=== PATIENT | female | born 1960 | race Caucasian/White ===

== ENCOUNTER → 2016-05-03 | Outpatient (CLI) | payer OTHER ==
--- NOTE | 2016-05-03 08:33 | RAD ---
EXAM: Chest, 2 views. HISTORY: Congestion. COMPARISON: None. FINDINGS: Frontal and lateral views the chest are obtained. There is no infiltrate, effusion or pneumothorax. The heart is normal in size. IMPRESSION: No acute pulmonary finding.
== END | disposition home or self-care (01) ==
LOC: DXRADRC 07:46
PROVIDERS: ATTEND Physician Assistant Medical
DX: R09.89 Other specified symptoms and signs involving the circulatory and respiratory systems (principal); R05 Cough
CPT/HCPCS: 71020

== ENCOUNTER 2016-06-04 14:40 | Emergency (ER) | payer OTHER ==
[~2016-06-04] VITALS: Ht 157.5 cm; Wt 112.0 kg
[2016-06-04] MEDS: HYDROCODONE/APAP 7.5/325MG TABLET. PO ONE (15:25)
--- NOTE | 2016-06-04 15:36 | PHYS DOC ---
Past History Past Medical History: Diabetes, Hypertension Past Surgical History: Cholecystectomy, Colectomy, Alcohol Use: Rarely Drug Use: None Adult General Chief Complaint Chief Complaint: BACK INJURY HPI HPI Patient is a 55-year-old female who presents after an accident at work. 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 She backed it into a wall and although she was wearing a harness, she slid forward in her seat and slid between the bars on the front of the device that are meant for protection. She was able to extricate herself and was ambulatory briefly after the accident but then coworkers placed her on a cart to bring her to the front of the building. She presents by POV for evaluation. She complains of pain in the middle of her back, across her back on both sides just below her bra. It hurts to take a deep breath. She was not having any pain before the accident. She denies any injury to her head, arms or legs. Patient does not have chronic back problems. Review of Systems Review of Systems Constitutional: Denies fever or chills [] HENT: Denies facial injury Respiratory: She is slightly short of breath and hurts somewhat to take a deep breath Cardiovascular: Denies chest pain Musculoskeletal: As in history of present illness Integument: Denies rash or skin lesions [] Neurologic: Denies headache, focal weakness or sensory changes [] Endocrine: Patient has type 2 diabetes Current Medications Current Medications Current Medications Medications (Trade) Dose Ordered Sig/Dorothy Start Time Stop Time Status Last Admin Dose Admin Acetaminophen/ Hydrocodone Bitart (Lortab 7.5/325) 1 tab 1X ONCE 06/04/16 15:45 06/04/16 15:46 06/04/16 15:25 1 TAB Allergies Allergies Allergies Coded Allergies Type Severity Reaction Last Updated Verified No Known Drug Allergies 06/04/16 No Physical Exam Physical Exam Constitutional: Well developed, well nourished, appears uncomfortable, no dyspnea. HENT: Normocephalic, atraumatic, bilateral external ears normal, no injury to face or head, Eyes: conjunctiva normal, no discharge. [] Neck: Normal range of motion, no tenderness, supple, no stridor. [] Cardiovascular:Heart rate regular rhythm, no murmur [] Lungs & Thorax: Bilateral breath sounds clear to auscultation [] Skin: Warm, dry, no erythema, no abrasion or contusion noted Back: Normal to inspection. Midline thoracic tenderness, approximately T5, T6. No swelling or crepitance. Extremities: No tenderness, no cyanosis, no clubbing, ROM intact, no edema. [] Neurologic: Alert and oriented X 3, normal motor function, normal sensory function, no focal deficits noted. [] Current Patient Data Vital Signs Vital Signs Date Time Temp Pulse Resp B/P Pulse Ox O2 Delivery O2 Flow Rate FiO2 06/04/16 15:25 12 06/04/16 14:47 98.0 92 99 Room Air EKG EKG [] Radiology/Procedures Radiology/Procedures [] Course & Med Decision Making Course & Med Decision Making Pertinent Labs and Imaging studies reviewed. (See chart for details) 55-year-old female with mid thoracic pain after an accident as described in history of present illness. I discussed with her giving her something for pain and obtaining thoracic spine x-rays. She is agreeable to that plan. The patient' s manager it training is here and ED nursing staff discussed with him that we would like to medicate her for pain despite the fact that the patient has not yet given a urine for drug screen, manager it training is okay with that. The patient was given a [place] for pain and we will get thoracic spine x-rays. Plain films of the T-spine read by me. I believe there is some loss of height of approximately T6, unknown whether new or old. I ordered a CT scan of the cervical spine. CT of T spine - nothing acute per Rad. D/w pt - ice, NSIADS, F/U work comp clinic. [] Dragon Disclaimer Dragon Disclaimer This chart was dictated in whole or in part using Voice Recognition software in a busy, high-work load, and often noisy Emergency Department environment. It may contain unintended and wholly unrecognized errors or omissions. Departure Departure: Impression: Primary Impression: Contusion, back Disposition: 01 HOME, SELF-CARE Condition: STABLE Referrals: LUCITA EUBANKS MD (PCP) Patient Instructions: Contusion, [id number] Additional Instructions: Ice to area of pain, 15-20 minutes out of every 1-2 hours. Ibuprofen 800 mg every 8 hours, pain and anti-inflammatory If needed for more severe pain, hydrocodone as prescribed. Not while driving or working. Will be sedating. This is an opiate. It will be constipating. Scripts Hydrocodone Bit/Acetaminophen ([place] 5-325 Tablet)1 Each Tablet1-2 Tab PO Q4- 6HRS #20 TAB For more severe pain Back pain Okay to combine with ibuprofen This is a opiate Will be sedating and constipating Prov:DIO GREEN MD 06/04/16 Ibuprofen 800 Mg [id number] Mg PO Q8HRS #30 For pain and anti-inflammatory Okay to combine with hydrocodone Prov:DIO GREEN MD 06/04/16 DIO GREEN MD Jun 04, 2016 15:36
[2016-06-04 15:55] VITALS: BP 148/68
--- NOTE | 2016-06-04 17:32 | RAD ---
PROCEDURE CT of the thoracic spine without contrast HISTORY Hit by left tract today at work pain mid thoracic spine. TECHNIQUE One or more of the following individualized dose reduction techniques were utilized for this examination: 1. Automated exposure control; 2. Adjustment of the mA and/or kV according to patient size; 3. Use of iterative reconstruction technique. COMPARISON None FINDINGS Images were obtained from the lower thoracic spine through mid T12. Sagittal and coronal reconstructed images were performed. No thoracic spine fracture or subluxation is seen. There are degenerative changes with the anterior osteophyte formation at multiple levels greater in the mid to lower thoracic spine. There is Schmorl's node formation with associated sclerosis at T11. There is sclerosis with areas of cyst formation in the inferior aspect of T12.. This may be due to Schmorl's node formation or associated with the degenerative disc disease. The inferior aspect of this process is not included in the field of view. The paraspinous soft tissues are unremarkable. There is no narrowing of the spinal canal or foraminal stenosis. Visualized portions of the lungs are clear. No significant pleural effusions are seen. IMPRESSION No thoracic spine fracture or subluxation is seen. There are degenerative changes. T12 is not entirely included in the field of view. There is sclerosis and cyst formation in the inferior aspect of the T12 vertebral body which probably on a degenerative basis or due to Schmorl's node formation and degenerative change. Electronically signed by: Etta Olivas (Jun 04, 2016 17:32:03)
[2016-06-04] MEDS ORDERED: IBUP800T PO (17:44)
[2016-06-04] MEDS ORDERED: HYDR-971 PO (17:44)
--- NOTE | 2016-06-05 09:11 | RAD ---
Three-view thoracic spine series History: Injury at work. Back pain. Findings: Mild dextroscoliosis is seen. There is loss of the vertical height of a lower thoracic vertebral body which may be T8. There is loss of the vertical height of L1 vertebral body which may be related to scoliotic curvature but a compression fracture here is possible. No discitis or osteolytic process is seen. IMPRESSION: Possible mild compression fractures of T8 and L1. If clinically needed, MRI study of the thoracic spine may be helpful for further evaluation. The thoracic spine MRI study may be performed to include L1.
== END 2016-06-04 17:55 | disposition home or self-care (01) ==
LOC: ER 14:40
DX: S20.222A Contusion of left back wall of thorax, initial encounter (principal); S20.221A Contusion of right back wall of thorax, initial encounter; E11.9 Type 2 diabetes mellitus without complications; I10 Essential (primary) hypertension; V89.2XXA Person injured in unspecified motor-vehicle accident, traffic, initial encounter; Y93.89 Activity, other specified; Y99.8 Other external cause status; Y92.89 Other specified places as the place of occurrence of the external cause
CPT/HCPCS: 72072; 72128; 99284-25